=== PATIENT | male | born 1990 ===

== ENCOUNTER 2019-01-26 20:06 | Emergency (ER) | payer OTHER ==
[~2019-01-26] VITALS: Ht 170.2 cm; Wt 90.7 kg
[2019-01-26] MEDS ORDERED: ALBU90OI INH (21:19)
[2019-01-26] MEDS ORDERED: Celexa10 MG PO (21:23)
[2019-01-26] MEDS ORDERED: Xanax0.5 MG PO (21:23)
[2019-01-26] MEDS ORDERED: TRAZ50 PO (21:23)
[2019-01-29 13:07] LABS: CHLAMYDIA BY NAA Negative (Negative); GONOCOCCUS BY NAA Negative (Negative); TRICH VAG BY NAA Negative (Negative)
== END 2019-01-26 22:20 | disposition home or self-care (01) ==
LOC: ER 20:06
PROVIDERS: Physician Assistant
DX: F41.9 Anxiety disorder, unspecified (principal); F32.9 Major depressive disorder, single episode, unspecified; Z87.891 Personal history of nicotine dependence
CPT/HCPCS: 87491; 87591; 87661; 93005; 93010; 99283-25

== ENCOUNTER 2019-03-03 22:06 | Emergency (ER) | payer OTHER ==
[~2019-03-03] VITALS: Ht 170.2 cm; Wt 87.1 kg
[~2019-03-03 22:06] MED LIST: ALBU90OI INH; Celexa10 MG PO; TRAZ50 PO; Xanax0.5 MG PO
[2019-03-04] MEDS ORDERED: ACETAMINOPHEN500 MG PO (00:01)
[2019-03-04] MEDS ORDERED: KETO10 PO (00:01)
== END 2019-03-04 00:15 | disposition home or self-care (01) ==
LOC: ER 22:06
DX: S83.91XA Sprain of unspecified site of right knee, initial encounter (principal); S39.012A Strain of muscle, fascia and tendon of lower back, initial encounter; F41.9 Anxiety disorder, unspecified; F32.9 Major depressive disorder, single episode, unspecified; Z87.891 Personal history of nicotine dependence; Z79.899 Other long term (current) drug therapy; W18.39XA Other fall on same level, initial encounter; Y93.F2 Activity, caregiving, lifting
CPT/HCPCS: 73562-RT; 96372; 99283-25; J1885

== ENCOUNTER → 2019-03-04 | Outpatient (CLI) | payer OTHER ==
[~2019-03-04] MED LIST changes: +ACETAMINOPHEN500 MG PO; +KETO10 PO
[2019-03-04 17:50] LABS: U Amphetamine Screen Not Detected; U Barbituate Screen Not Detected; U Benzodiazapine Screen Not Detected; U Buprenorphine Screen Not Detected; U Cannabinoids Screen Not Detected; U Cocaine Screen Not Detected; U Methadone Screen Not Detected; U Methamphetamine Screen Not Detected; U Opiates Screen Not Detected; U Oxycodone Screen Not Detected; U Phencyclidine Screen Not Detected; U Propoxyphene Screen Not Detected
== END ==
LOC: LAB SHORT 15:22 → LAB 15:22
PROVIDERS: Registered Nurse Psychiatric/Mental Health
DX: Z51.81 Encounter for therapeutic drug level monitoring (principal); Z79.899 Other long term (current) drug therapy

== ENCOUNTER 2019-05-04 07:30 | Emergency (ER) | payer OTHER ==
[~2019-05-04] VITALS: Ht 170.2 cm; Wt 90.7 kg
[2019-05-04 08:01] LABS: BASOPHILS ABSOLUTE AUTO 0.05 K/mm3 (0.00-0.23); BASOPHILS PERCENT AUTO 1 % (0-2); EOSINOPHILS ABSOLUTE AUTO 0.17 K/mm3 (0.00-0.68); EOSINOPHILS PERCENT AUTO 2 % (0-6); Hematocrit 47.2 % (37.0-53.0); Hemoglobin 15.8 g/dL (13.5-17.5); IMMATURE GRAN ABSOLUTE AUTO 0.02 K/mm3 (0.00-0.10); IMMATURE GRAN PERCENT AUTO 0 % (0-1); LYMPHOCYTES ABSOLUTE AUTO 2.56 K/mm3 (0.84-5.20); LYMPHOCYTES PERCENT AUTO 28 % (21-46); MONOCYTES PERCENT AUTO 8 % (4-13); Mean Corpuscular HGB Conc 33.5 g/dL (31.5-36.5); Mean Corpuscular Volume 90 fL (80-100); Mean Platelet Volume 11.1 fL (9.1-12.4); NEUTROPHILS ABSOLUTE AUTO 5.57 K/mm3 (1.96-9.15); NEUTROPHILS PERCENT AUTO 61 % (41-73); Platelet Count 274 K/mm3 (150-400); RDW Coefficient Variation 12.2 % (11.7-14.2); RDW Standard Deviation 40.6 fL (35.1-46.3); Red Blood Cell Count 5.26 M/mm3 (4.30-5.90); White Blood Cell Count 9.07 K/mm3 (4.00-11.30)
[2019-05-04 08:17] LABS: Alanine Aminotransfer (ALT/SGP 34 U/L (12-78); Albumin, Blood 3.8 g/dL (3.4-5.0); Albumin/Globulin Ratio 1.1 (0.8-1.8); Alk Phos 73 U/L (50-136); Anion Gap 7 mmol/L (6-16); Aspartate Aminotrans (AST/SGOT 26 U/L (12-37); Bilirubin, Total 0.5 mg/dL (0.1-1.0); Blood Urea Nitrogen 9 mg/dL (8-24); CO2, Blood 23 mmol/L (21-32); Chloride, Blood 107 mmol/L (98-108); Creatinine, Blood 0.64 mg/dL (0.60-1.20); Globulin, Blood 3.5 g/dL (2.2-4.0); Glomerular Filtration Rate >60 (60-); Glucose, Blood 125 mg/dL (70-99); Potassium, Blood 3.8 mmol/L (3.5-5.5); Sodium, Blood 137 mmol/L (136-145); Total Protein, Blood 7.3 g/dL (6.4-8.2)
== END 2019-05-04 10:28 | disposition home or self-care (01) ==
LOC: ER 07:30
PROVIDERS: Emergency Medicine
DX: R55 Syncope and collapse (principal); R42 Dizziness and giddiness; F41.9 Anxiety disorder, unspecified; F32.9 Major depressive disorder, single episode, unspecified; G43.909 Migraine, unspecified, not intractable, without status migrainosus; Z87.891 Personal history of nicotine dependence
CPT/HCPCS: 36415; 80053; 85025; 93005; 93010; 96360; 99284-25; A9270; J7120

== ENCOUNTER 2019-08-03 16:50 | Observation (INO) | payer OTHER ==
[~2019-08-03] VITALS: Ht 170.2 cm; Wt 93.4 kg
[2019-08-03] MEDS ORDERED: IBUP800 PO (17:47)
[2019-08-03 18:09] LABS: BASOPHILS PERCENT AUTO 1 % (0-2); EOSINOPHILS ABSOLUTE AUTO 0.12 K/mm3 (0.00-0.68); EOSINOPHILS PERCENT AUTO 1 % (0-6); Hematocrit 47.7 % (37.0-53.0); IMMATURE GRAN ABSOLUTE AUTO 0.04 K/mm3 (0.00-0.10); IMMATURE GRAN PERCENT AUTO 0 % (0-1); LYMPHOCYTES ABSOLUTE AUTO 3.33 K/mm3 (0.84-5.20); LYMPHOCYTES PERCENT AUTO 28 % (21-46); MONOCYTES ABSOLUTE AUTO 1.11 K/mm3 (0.16-1.47); MONOCYTES PERCENT AUTO 10 % (4-13); Mean Corpuscular HGB 30.2 pg (26.0-34.0); Mean Corpuscular HGB Conc 33.5 g/dL (31.5-36.5); Mean Corpuscular Volume 90 fL (80-100); NEUTROPHILS ABSOLUTE AUTO 7.01 K/mm3 (1.96-9.15); NEUTROPHILS PERCENT AUTO 60 % (41-73); Platelet Count 270 K/mm3 (150-400); RDW Standard Deviation 39.8 fL (35.1-46.3); Red Blood Cell Count 5.29 M/mm3 (4.30-5.90); White Blood Cell Count 11.71 K/mm3 (4.00-11.30)
[2019-08-03] MEDS ORDERED: GABA300 PO (18:23)
[2019-08-03] MEDS ORDERED: BACL20 PO (18:23)
[2019-08-03] MEDS ORDERED: MINIPRESS2 M1 PO (18:25)
[2019-08-03] MEDS ORDERED: OMEP20ER PO (18:26)
[2019-08-03] MEDS ORDERED: LITH300C PO ×2 (18:26)
[2019-08-03] MEDS ORDERED: VENLAFAXINE HC225 MG PO (18:29)
[2019-08-03] MEDS ORDERED: TRAM50 PO (18:31)
[2019-08-03] MEDS ORDERED: MIRT15 PO (18:32)
[2019-08-03 18:33] LABS: Alanine Aminotransfer (ALT/SGP 37 U/L (12-78); Albumin, Blood 4.1 g/dL (3.4-5.0); Albumin/Globulin Ratio 1.1 (0.8-1.8); Alk Phos 98 U/L (50-136); Anion Gap 4 mmol/L (6-16); Aspartate Aminotrans (AST/SGOT 20 U/L (12-37); Bilirubin, Total 0.5 mg/dL (0.1-1.0); Blood Urea Nitrogen 14 mg/dL (8-24); Bun/Creatinine Ratio 22.3 (12.0-20.0); CO2, Blood 27 mmol/L (21-32); Calcium, Blood 8.9 mg/dL (8.5-10.1); Chloride, Blood 107 mmol/L (98-108); Creatinine, Blood 0.63 mg/dL (0.60-1.20); Globulin, Blood 3.6 g/dL (2.2-4.0); Glomerular Filtration Rate >60 (60-); Glucose, Blood 88 mg/dL (70-99); Potassium, Blood 3.5 mmol/L (3.5-5.5); Salicylate <1.7 mg/dL (2.8-20.0); Sodium, Blood 138 mmol/L (136-145); Total Protein, Blood 7.7 g/dL (6.4-8.2)
[2019-08-03] MEDS ORDERED: HYDHCL25 PO (18:34)
[2019-08-03 18:37] LABS: Acetaminophen, Random <2.0 ug/mL (10.0-30.0); Ethanol (Alcohol), Blood, Med <3 mg/dL
[2019-08-03 18:43] LABS: Source, Urine Clean Catch
[2019-08-03 18:52] LABS: Bilirubin, Urine Neg (Neg); Blood, Urine Neg (Neg); Glucose Qualitative, Urine Neg (Neg); Ketones, Urine Neg (Neg); Leukocyte Esterase, Urine Neg (Neg); Nitrite, Urine Neg (Neg); Protein, Urine Neg (Neg); Specific Gravity, Urine 1.015 (1.003-1.022); Urobilinogen, Urine NORM (Normal); pH, Urine 6.5 (5.0-8.0)
[2019-08-03 18:59] LABS: Appearance, Urine Clear (Clear); Color, Urine Yellow (P-Yellow)
[2019-08-03] MEDS ORDERED: ALBU90OI INH (19:11)
[2019-08-03 19:18] LABS: U Amphetamine Screen Not Detected; U Barbituate Screen Not Detected; U Benzodiazapine Screen Not Detected; U Buprenorphine Screen Not Detected; U Cannabinoids Screen Not Detected; U Cocaine Screen Not Detected; U Methadone Screen Not Detected; U Methamphetamine Screen Not Detected; U Opiates Screen Not Detected; U Oxycodone Screen Not Detected; U Phencyclidine Screen Not Detected; U Propoxyphene Screen Not Detected
== END 2019-08-04 15:44 | disposition home or self-care (01) ==
LOC: ER 16:50 → EOR 16:51
PROVIDERS: Physician Assistant; ADMIT Emergency Medicine
DX: F32.9 Major depressive disorder, single episode, unspecified (principal); F17.220 Nicotine dependence, chewing tobacco, uncomplicated; F41.9 Anxiety disorder, unspecified; Z88.8 Allergy status to other drugs, medicaments and biological substances; Z79.899 Other long term (current) drug therapy
CPT/HCPCS: 80053; 81003; 85025; 99285; G0378; G0480

== ENCOUNTER 2019-08-14 10:11 | Emergency (ER) | payer OTHER ==
[~2019-08-14] VITALS: Ht 170.2 cm; Wt 90.7 kg
[~2019-08-14 10:11] MED LIST changes: +BACL20 PO; +GABA300 PO; +HYDHCL25 PO; +IBUP800 PO; +LITH300C PO; +MINIPRESS2 M1 PO; +MIRT15 PO; +OMEP20ER PO; +TRAM50 PO; +VENLAFAXINE HC225 MG PO
[2019-08-14] MEDS ORDERED: OLAN5 PO (10:59)
[2019-08-14 12:33] LABS: Influenza A Negative (NEGATIVE); Influenza B Negative (NEGATIVE)
== END 2019-08-14 12:44 | disposition home or self-care (01) ==
LOC: ER 10:11
PROVIDERS: Emergency Medicine
DX: J98.9 Respiratory disorder, unspecified (principal); B97.89 Other viral agents as the cause of diseases classified elsewhere; J45.909 Unspecified asthma, uncomplicated; F41.9 Anxiety disorder, unspecified; F32.9 Major depressive disorder, single episode, unspecified; G43.909 Migraine, unspecified, not intractable, without status migrainosus; Z87.891 Personal history of nicotine dependence; Z79.899 Other long term (current) drug therapy; Z79.51 Long term (current) use of inhaled steroids
CPT/HCPCS: 87804; 99283

== ENCOUNTER 2020-02-07 10:57 | Day surgery (SDC) | payer OTHER ==
[~2020-02-07] VITALS: Ht 170.2 cm; Wt 97.9 kg
[~2020-02-07 10:57] MED LIST changes: +LITH300ER; +MIRT30 PO; +OLAN5 PO; +ONDA4ODT MM; +PRAZ5 PO
[2020-02-07] MEDS ORDERED: ALBU3IS (11:42)
== END 2020-02-07 12:49 | disposition home or self-care (01) ==
LOC: ORSCSDS 10:57
PROVIDERS: Student in an Organized Health Care Education/Training Program
PROC: 0DB58ZX Excision of Esophagus, Via Natural or Artificial Opening Endoscopic, Diagnostic (ICD-10-PCS; principal; 2020-02-07 12:45)
PROC: 0DB88ZX Excision of Small Intestine, Via Natural or Artificial Opening Endoscopic, Diagnostic (ICD-10-PCS; principal; 2020-02-07 12:45)
PROC: 0DB68ZX Excision of Stomach, Via Natural or Artificial Opening Endoscopic, Diagnostic (ICD-10-PCS; principal; 2020-02-07 12:45)
DX: R13.10 Dysphagia, unspecified (principal); R10.9 Unspecified abdominal pain; R11.2 Nausea with vomiting, unspecified; B96.81 Helicobacter pylori [H. pylori] as the cause of diseases classified elsewhere; K29.80 Duodenitis without bleeding; F31.9 Bipolar disorder, unspecified; Z79.899 Other long term (current) drug therapy
CPT/HCPCS: 88305; 88342; J2250; J2704; J7120

== ENCOUNTER 2021-05-14 09:29 | Day surgery (SDC) | payer OTHER ==
[~2021-05-14] VITALS: Ht 170.2 cm; Wt 106.9 kg
[~2021-05-14 09:29] MED LIST changes: +ALBU3IS
[2021-05-14] MEDS ORDERED: SILD25T (10:12)
--- NOTE | 2021-05-14 10:23 | NUR ---
05/14/21 1023 Karrie Reyes FIRST ATTEMPT MISSED BY ABRIL IN THE RIGHT FOREARM. SECOND ATTEMPT SUCCESFUL IN THE RIGHT HAND BY HALEY
== END 2021-05-14 13:11 | disposition home or self-care (01) ==
LOC: ORSCSDS 09:29
PROVIDERS: Student in an Organized Health Care Education/Training Program
PROC: 0DB48ZX Excision of Esophagogastric Junction, Via Natural or Artificial Opening Endoscopic, Diagnostic (ICD-10-PCS; principal; 2021-05-14 11:15)
PROC: 0DB68ZX Excision of Stomach, Via Natural or Artificial Opening Endoscopic, Diagnostic (ICD-10-PCS; principal; 2021-05-14 11:15)
DX: R11.2 Nausea with vomiting, unspecified (principal); F31.9 Bipolar disorder, unspecified; F17.210 Nicotine dependence, cigarettes, uncomplicated; Z79.899 Other long term (current) drug therapy
CPT/HCPCS: 88305; 88342; J2250; J2704; J7120

== ENCOUNTER 2021-10-18 07:28 | Emergency (ER) | payer OTHER ==
[~2021-10-18] VITALS: Ht 170.2 cm; Wt 108.9 kg
[~2021-10-18 07:28] MED LIST changes: +SILD25T
[2021-10-18 09:30] LABS: BASOPHILS ABSOLUTE AUTO 0.06 K/mm3 (0.00-0.23); BASOPHILS PERCENT AUTO 1 % (0-2); EOSINOPHILS ABSOLUTE AUTO 0.11 K/mm3 (0.00-0.68); EOSINOPHILS PERCENT AUTO 1 % (0-6); Hematocrit 48.3 % (37.0-53.0); Hemoglobin 16.1 g/dL (13.5-17.5); IMMATURE GRAN ABSOLUTE AUTO 0.02 K/mm3 (0.00-0.10); IMMATURE GRAN PERCENT AUTO 0 % (0-1); LYMPHOCYTES ABSOLUTE AUTO 2.01 K/mm3 (0.84-5.20); LYMPHOCYTES PERCENT AUTO 19 % (21-46); MONOCYTES ABSOLUTE AUTO 0.73 K/mm3 (0.16-1.47); MONOCYTES PERCENT AUTO 7 % (4-13); Mean Corpuscular HGB 28.9 pg (26.0-34.0); Mean Corpuscular HGB Conc 33.3 g/dL (31.5-36.5); Mean Corpuscular Volume 87 fL (80-100); Mean Platelet Volume 10.8 fL (9.1-12.4); NEUTROPHILS PERCENT AUTO 73 % (41-73); Platelet Count 323 K/mm3 (150-400); RDW Coefficient Variation 11.9 % (11.7-14.2); RDW Standard Deviation 37.9 fL (35.1-46.3); Red Blood Cell Count 5.57 M/mm3 (4.30-5.90); White Blood Cell Count 10.83 K/mm3 (4.00-11.30)
[2021-10-18] MEDS ORDERED: Clonazepam1 M1 PO (09:39)
[2021-10-18] MEDS ORDERED: SUBVENITE PO (09:39)
[2021-10-18] MEDS ORDERED: TOPI25 PO (09:40)
[2021-10-18 09:54] LABS: Albumin, Blood 4.3 g/dL (3.4-5.0); Albumin/Globulin Ratio 1.3 (0.8-1.8); Bilirubin, Total 0.6 mg/dL (0.1-1.0); Bun/Creatinine Ratio 15.4 (12.0-20.0); Calcium, Blood 9.5 mg/dL (8.5-10.1); Creatinine, Blood 0.72 mg/dL (0.60-1.20); Globulin, Blood 3.2 g/dL (2.2-4.0); Potassium, Blood 4.1 mmol/L (3.5-5.5); Total Protein, Blood 7.5 g/dL (6.4-8.2)
== END 2021-10-18 10:39 | disposition home or self-care (01) ==
LOC: ER 07:28
PROVIDERS: Emergency Medicine
DX: R07.89 Other chest pain (principal); F41.9 Anxiety disorder, unspecified; J45.909 Unspecified asthma, uncomplicated; F32.A Depression, unspecified; Z88.8 Allergy status to other drugs, medicaments and biological substances; Z79.899 Other long term (current) drug therapy
CPT/HCPCS: 36415; 71045; 80053; 84484; 85025; 93005; 93010

== ENCOUNTER → 2022-12-28 | Outpatient (CLI) | payer OTHER ==
[~2022-12-28] MED LIST changes: +Clonazepam1 M1 PO; +SUBVENITE PO; +TOPI25 PO
[2022-12-28 12:27] LABS: BASOPHILS ABSOLUTE AUTO 0.08 K/mm3 (0.00-0.23); BASOPHILS PERCENT AUTO 1 % (0-2); EOSINOPHILS ABSOLUTE AUTO 0.21 K/mm3 (0.00-0.68); EOSINOPHILS PERCENT AUTO 2 % (0-6); Hematocrit 48.9 % (37.0-53.0); Hemoglobin 16.3 g/dL (13.5-17.5); IMMATURE GRAN ABSOLUTE AUTO 0.03 K/mm3 (0.00-0.10); IMMATURE GRAN PERCENT AUTO 0 % (0-1); LYMPHOCYTES ABSOLUTE AUTO 2.43 K/mm3 (0.84-5.20); LYMPHOCYTES PERCENT AUTO 24 % (21-46); MONOCYTES ABSOLUTE AUTO 0.74 K/mm3 (0.16-1.47); MONOCYTES PERCENT AUTO 7 % (4-13); Mean Corpuscular HGB 29.4 pg (26.0-34.0); Mean Corpuscular HGB Conc 33.3 g/dL (31.5-36.5); Mean Corpuscular Volume 88 fL (80-100); Mean Platelet Volume 10.6 fL (9.1-12.4); NEUTROPHILS PERCENT AUTO 66 % (41-73); Platelet Count 321 K/mm3 (150-400); RDW Coefficient Variation 12.5 % (11.7-14.2); RDW Standard Deviation 40.5 fL (35.1-46.3); Red Blood Cell Count 5.54 M/mm3 (4.30-5.90); White Blood Cell Count 10.19 K/mm3 (4.00-11.30)
[2022-12-28 12:39] LABS: Albumin, Blood 4.2 g/dL (3.4-5.0); Albumin/Globulin Ratio 1.3 (0.8-1.8); Bilirubin, Total 0.5 mg/dL (0.1-1.0); Bun/Creatinine Ratio 7.5 (12.0-20.0); Calcium, Blood 9.5 mg/dL (8.5-10.1); Creatinine, Blood 0.93 mg/dL (0.60-1.20); Globulin, Blood 3.2 g/dL (2.2-4.0); Potassium, Blood 4.2 mmol/L (3.5-5.5); Total Protein, Blood 7.4 g/dL (6.4-8.2)
[2022-12-31 04:29] LABS: CHLAMYDIA TRACHOMATIS, NAA Negative (Negative)
== END | disposition home or self-care (01) ==
LOC: LAB 12:23 → LAB SHORT 12:23
PROVIDERS: Emergency Medicine
DX: N50.811 Right testicular pain (principal); Z72.51 High risk heterosexual behavior
CPT/HCPCS: 80053; 85025; 87491; 87591

== ENCOUNTER 2024-02-25 16:17 | Emergency (ER) | payer OTHER ==
[~2024-02-25] VITALS: Ht 167.6 cm; Wt 77.1 kg
[2024-02-25 17:07] LABS: BASOPHILS ABSOLUTE AUTO 0.04 K/mm3 (0.00-0.23); BASOPHILS PERCENT AUTO 0 % (0-2); EOSINOPHILS ABSOLUTE AUTO 0.13 K/mm3 (0.00-0.68); EOSINOPHILS PERCENT AUTO 1 % (0-6); Hemoglobin 16.1 g/dL (13.5-17.5); IMMATURE GRAN ABSOLUTE AUTO 0.04 K/mm3 (0.00-0.10); IMMATURE GRAN PERCENT AUTO 0 % (0-1); LYMPHOCYTES ABSOLUTE AUTO 2.23 K/mm3 (0.84-5.20); LYMPHOCYTES PERCENT AUTO 21 % (21-46); MONOCYTES ABSOLUTE AUTO 0.75 K/mm3 (0.16-1.47); MONOCYTES PERCENT AUTO 7 % (4-13); Mean Corpuscular HGB 31.3 pg (26.0-34.0); Mean Corpuscular HGB Conc 34.3 g/dL (31.5-36.5); Mean Corpuscular Volume 91 fL (80-100); Mean Platelet Volume 10.7 fL (9.1-12.4); NEUTROPHILS ABSOLUTE AUTO 7.61 K/mm3 (1.96-9.15); NEUTROPHILS PERCENT AUTO 71 % (41-73); Platelet Count 334 K/mm3 (150-400); RDW Coefficient Variation 12.1 % (11.7-14.2); RDW Standard Deviation 40.3 fL (35.1-46.3); Red Blood Cell Count 5.14 M/mm3 (4.30-5.90)
[2024-02-25 17:25] LABS: Albumin, Blood 4.2 g/dL (3.4-5.0); Albumin/Globulin Ratio 1.2 (0.8-1.8); Bilirubin, Total 0.7 mg/dL (0.1-1.0); Bun/Creatinine Ratio 7.9 (12.0-20.0); Calcium, Blood 9.5 mg/dL (8.5-10.1); Creatinine, Blood 1.01 mg/dL (0.60-1.20); Globulin, Blood 3.5 g/dL (2.2-4.0); Magnesium, Blood 2.3 mg/dL (1.6-2.4); Potassium, Blood 4.1 mmol/L (3.5-5.5); Total Protein, Blood 7.7 g/dL (6.4-8.2)
[2024-02-25] MEDS ORDERED: EMTRICITABINE-1 EAC5 PO (19:25)
[2024-02-25] MEDS ORDERED: Budeprion Xl300 MG PO (19:25)
[2024-02-25 20:17] LABS: Lithium 0.96 mmol/L (0.60-1.20)
[2024-02-25 20:45] VITALS: BP 107/58
== END 2024-02-25 21:17 | disposition home or self-care (01) ==
LOC: ER 16:17
PROVIDERS: Physician Assistant
DX: T50.911A Poisoning by multiple unspecified drugs, medicaments and biological substances, accidental (unintentional), initial encounter (principal); G43.909 Migraine, unspecified, not intractable, without status migrainosus; J45.909 Unspecified asthma, uncomplicated; F17.200 Nicotine dependence, unspecified, uncomplicated; Z79.899 Other long term (current) drug therapy; Z88.8 Allergy status to other drugs, medicaments and biological substances
CPT/HCPCS: 80053; 80178; 83735; 85025; 93005; 93010; 99284-25

== ENCOUNTER 2024-03-11 18:42 | Observation (INO) | payer OTHER ==
[~2024-03-11] VITALS: Ht 170.2 cm; Wt 87.5 kg
[~2024-03-11 18:42] MED LIST changes: +Budeprion Xl300 MG PO; +EMTRICITABINE-1 EAC5 PO
[2024-03-11 19:41] LABS: BASOPHILS ABSOLUTE AUTO 0.03 K/mm3 (0.00-0.23); BASOPHILS PERCENT AUTO 0 % (0-2); EOSINOPHILS ABSOLUTE AUTO 0.07 K/mm3 (0.00-0.68); EOSINOPHILS PERCENT AUTO 1 % (0-6); Hematocrit 45.4 % (37.0-53.0); Hemoglobin 15.4 g/dL (13.5-17.5); IMMATURE GRAN ABSOLUTE AUTO 0.04 K/mm3 (0.00-0.10); IMMATURE GRAN PERCENT AUTO 0 % (0-1); LYMPHOCYTES PERCENT AUTO 12 % (21-46); MONOCYTES ABSOLUTE AUTO 0.57 K/mm3 (0.16-1.47); MONOCYTES PERCENT AUTO 5 % (4-13); Mean Corpuscular HGB Conc 33.9 g/dL (31.5-36.5); Mean Corpuscular Volume 91 fL (80-100); Mean Platelet Volume 10.6 fL (9.1-12.4); NEUTROPHILS ABSOLUTE AUTO 9.23 K/mm3 (1.96-9.15); NEUTROPHILS PERCENT AUTO 81 % (41-73); Platelet Count 345 K/mm3 (150-400); RDW Coefficient Variation 12.1 % (11.7-14.2); RDW Standard Deviation 40.3 fL (35.1-46.3); Red Blood Cell Count 4.97 M/mm3 (4.30-5.90); White Blood Cell Count 11.34 K/mm3 (4.00-11.30)
[2024-03-11 19:50] LABS: Source, Urine Clean Catch
[2024-03-11 19:57] LABS: Appearance, Urine Clear (Clear); Bilirubin, Urine Neg (Neg); Blood, Urine Neg (Neg); Color, Urine Yellow (P-Yellow); Glucose Qualitative, Urine Neg (Neg); Ketones, Urine 3+ (Neg); Leukocyte Esterase, Urine Neg (Neg); Nitrite, Urine Neg (Neg); Protein, Urine Neg (Neg); Urobilinogen, Urine NORM (Normal)
[2024-03-11 20:12] LABS: Lithium 0.52 mmol/L (0.60-1.20)
[2024-03-11 20:13] LABS: Ethanol (Alcohol), Blood, Med <3 mg/dL; Salicylate <1.7 mg/dL (2.8-20.0)
[2024-03-11 20:13] LABS: U Amphetamine Screen Not Detected; U Barbituate Screen Not Detected; U Benzodiazapine Screen Not Detected; U Buprenorphine Screen Not Detected; U Cannabinoids Screen Not Detected; U Cocaine Screen Not Detected; U Methadone Screen Not Detected; U Methamphetamine Screen Not Detected; U Opiates Screen Not Detected; U Oxycodone Screen Not Detected; U Phencyclidine Screen Not Detected
[2024-03-11 20:18] LABS: Acetaminophen, Random <2.0 ug/mL (10.0-30.0); Alanine Aminotransfer (ALT/SGP 34 U/L (12-78); Albumin, Blood 4.4 g/dL (3.4-5.0); Albumin/Globulin Ratio 1.4 (0.8-1.8); Alk Phos 92 U/L (50-136); Anion Gap 9 mmol/L (3-11); Aspartate Aminotrans (AST/SGOT 17 U/L (12-37); Bilirubin, Total 0.8 mg/dL (0.1-1.0); Blood Urea Nitrogen 9 mg/dL (8-24); Bun/Creatinine Ratio 9.5 (12.0-20.0); CO2, Blood 26 mmol/L (21-32); Calcium, Blood 9.7 mg/dL (8.5-10.1); Chloride, Blood 110 mmol/L (98-108); Creatinine, Blood 0.95 mg/dL (0.60-1.20); Globulin, Blood 3.1 g/dL (2.2-4.0); Glomerular Filtration Rate 109 (60-); Glucose, Blood 101 mg/dL (70-99); Potassium, Blood 3.7 mmol/L (3.5-5.5); Sodium, Blood 141 mmol/L (136-145); Total Protein, Blood 7.5 g/dL (6.4-8.2)
[2024-03-12] MEDS ORDERED: ESZOPICLONE3 MG PO (10:06)
[2024-03-12 19:30] VITALS: BP 120/75
[2024-03-16] MEDS ORDERED: BUPROPION HCL200 M2 PO (12:07)
[2024-03-16] MEDS ORDERED: CLON1 PO (12:08)
== END 2024-03-12 21:20 | disposition other institution (70) ==
LOC: ER 18:42 → EOR 18:43
PROVIDERS: Student in an Organized Health Care Education/Training Program; ADMIT Emergency Medicine
DX: F32.9 Major depressive disorder, single episode, unspecified (principal); R45.851 Suicidal ideations; F43.10 Post-traumatic stress disorder, unspecified; G43.909 Migraine, unspecified, not intractable, without status migrainosus; F60.3 Borderline personality disorder; Z79.899 Other long term (current) drug therapy
CPT/HCPCS: 36415; 80053; 80178; 80320; 81003; 85025; 93005; 93010; 99285-25; G0378; G0480

== ENCOUNTER 2024-03-12 14:10 | Inpatient (IN) | payer OTHER ==
[~2024-03-12] VITALS: Ht 170.2 cm; Wt 87.5 kg
[~2024-03-12 14:10] MED LIST changes: +ESZOPICLONE3 MG PO
[2024-03-12] MEDS ORDERED: FLU VACC TS2024-25(6MOS UP)/PF 45 MCG/0.5 ML SYRINGE IM SCH (15:55)
[2024-03-12] MEDS ORDERED: FLU VACC TS2024-25(6MOS UP)/PF 45 MCG/0.5 ML SYRINGE IM ONE (15:55)
[2024-03-12] MEDS ORDERED: Aluminum Hydroxide 320MG/5ML 473 ML PO PRN ×2 (15:55→16:10)
[2024-03-12] MEDS ORDERED: Ibuprofen 600 MG Tab PO PRN ×2 (15:55→16:10)
[2024-03-12] MEDS ORDERED: Acetaminophen 325 MG TABLET PO PRN ×2 (15:55→16:10)
[2024-03-12] MEDS ORDERED: LamoTRIgine 100 MG Tab PO SCH ×2 (16:00→16:10)
[2024-03-12] MEDS ORDERED: BuPROPion HCl SR 100 MG TabCR PO SCH ×2 (18:00)
[2024-03-12] MEDS ORDERED: Lithium Carbonate 450 MG TabCR PO SCH ×2 (21:00)
[2024-03-12] MEDS ORDERED: ClonazePAM 1 MG Tab PO SCH ×2 (21:00)
[2024-03-12 22:02] VITALS: BP 116/75
[2024-03-13 00:04] VITALS: BP 116/75
--- NOTE | 2024-03-13 06:08 | NUR ---
Patient arrived to the unit at 2123. A&Ox4 They were cooperative with the admission process. They took their medication without issue. They denied symptoms at this time. They denied any concerns at this time. They are able to make their needs known. Plan of care ongoing. They appeared to be sleeping quietly for 3 hours.
[2024-03-13] MEDS ORDERED: Nicotine Polacrilex 2 MG Gum PO PRN (07:10)
[2024-03-13] MEDS ORDERED: Folic Acid 1 MG TAB PO SCH ×2 (09:00)
[2024-03-13] MEDS ORDERED: Thiamine HCl 100 MG Tab PO SCH ×2 (09:00)
[2024-03-13] MEDS ORDERED: BuPROPion HCl SR 100 MG TabCR PO SCH ×2 (09:00)
[2024-03-13] MEDS ORDERED: Multivitamins 1 Tab PO SCH ×2 (09:00)
[2024-03-13] MEDS ORDERED: Nicotine 21 MG PATCH TOP SCH (09:00)
--- NOTE | 2024-03-13 17:43 | NUR ---
SHIFT SUMMARY Pt A&O, calm, cooperative, eye contact is good. Pt describes his mood as "really good," affect is euthymic and full-range. Pt denies SI, HI, and hallucinations. Pt denied depression but endorsed "a little" anxiety RT being on the BHU. 1:1 was d/c'd this morning and pt is now on q15m safety checks. Pt had PRN nicotine gum once. Staff continues to monitor for safety and wellness.
[2024-03-13 21:20] VITALS: BP 133/74
--- NOTE | 2024-03-14 05:59 | NUR ---
Patient spent most of the evening watching TV with peers. They were cooperative with assessment. They took their medication without issue. They denied symptoms at this time. They denied new concerns at this time. They are able to make their needs known. Plan of care ongoing. They appeared to be sleeping for 6 hours.
[2024-03-14 08:23] VITALS: BP 119/77
[2024-03-14] MEDS ORDERED: Peg 400/Hypromellose/Glycerin 15 DROP/ML BTL BOTHEYES SCH (16:00)
--- NOTE | 2024-03-14 18:25 | NUR ---
PT DENIED SI, HI, AVH, INTUSIVE THOUGHTS AND PAIN. HE ENDORSED ANXIETY 1-2/10w. HE PARTICIPATED IN GROUPS AND IN THE [facility] TODAY. HE HAS APPEARED TO BE IN GOOD HUMOR. HE ASKED FOR NICORETTE GUM TWICE AND ALSO FOR ARIFICIAL TEARS.
[2024-03-14 20:34] VITALS: BP 131/81
--- NOTE | 2024-03-15 05:54 | NUR ---
Patient spent most of the evening watching TV and socializing with peers and staff. They were cooperative with assessment. They took their medication without issue. They denied new concerns at this time. They denied symptoms at this time. They are able to make their needs known. Plan of care ongoing. They requested a return to work from the provider. They have a nasal septum piercing that is crimped in place and is unable to be removed without tools. They appeared to be sleeping for 7 hours.
[2024-03-15 08:16] VITALS: BP 135/75
--- NOTE | 2024-03-15 08:27 | NUR ---
AM ASSESSMENT PT PLEASANT AND COOPERATIVE W/ CARE. PT SPEAKING HIGHLY OF [facility] STAFF R/T MAKING HIM FEEL COMFORTABLE AND NONJUDGEMENTAL. PT DENIES ANY CURRENT SI AND REGRETFUL FOR RECENT THOUGHTS OF SI W/ RESPONSIBILITY TO HIS 2 DAUGHTERS. PT REPORTS FAMILY HX OF SCHIZOPHRENIA W/ 2 UNCLES AND POSSIBLE BIPOLAR W/ MOM. PT REPORTS HX OF SUBSTANCE USE AND 4 YEARS OF SOBRIETY FROM COCAINE. PT CONTINUES TO DISCUSS MENTAL HEALTH INTEREST AND REPORTS SELF EDUCATING OF MH DISORDERS. I HAVE ENCOURAGED PT TO CONTINUE HIS EDUCATION AND DESIRES TO HELP OTHERS WITH MH DX. WILL CONTINUE TO MONITOR AND PROVIDE SUPPORTIVE COMMUNICATION.
--- NOTE | 2024-03-15 08:53 | NUR ---
SEPTUM PIERCING IN PLACE, PT REPORTS UNABLE TO REMOVE
--- NOTE | 2024-03-15 18:04 | NUR ---
SHIFT SUMMARY PT DENIES ANY CURRENT SI AT THIS TIME. REPORTS FEELING GOOD ABOUT FUTURE. PT VERY PLEASANT, THANKFUL, AND COOPERATIVE WITH CARE. PT CONTINUES TO PARTICIPATE WITH STAFF AND [facility] W/ GROUPS AND ACTIVITIES. PROVIDER HAS SIGNED WORK RELEASE FOR FOR PT FROM 03/12/24 THROUGH 03/20/24 PER PT REQUEST. PT RECEIVED INFORMATION FOR F/U COUNCELING/ COACHING UNTIL THERAPIST IS OBTAINED. PT ALSO ENCOURAGED TO APPLY FOR [facility] TO ASSIST W/ SERVICES. PT ALSO ENCOURAGED TO F/U W/ [facility] CRISIS TEAM FOR THERAPY ASSISTANCE. STAFF VERIFIED F/U APPT AT [facility] W/ DR WILLIAMSON 03/17 @10AM. WILL CONTINUE TO MONITOR AND PROVIDE SUPPORT.
[2024-03-15] MEDS ORDERED: Peg 400/Hypromellose/Glycerin 15 DROP/ML BTL BOTHEYES PRN (20:15)
[2024-03-15 20:32] VITALS: BP 129/81
--- NOTE | 2024-03-16 06:05 | NUR ---
Patient spent most of the evening watching TV and socializing with peers. They were cooperative with assessment. They took their scheduled medication and PRN eye drops without issue. Thye denied new concerns at this time. They denied any symptoms at this time. They are able to make their needs known. Plan of care ongoing. They were very [id number] to all of the staff for all of the assistance and recommendations. They appeared to be sleeping for 6 hours.
[2024-03-16 08:01] VITALS: BP 123/82
[2024-03-16 08:19] VITALS: BP 123/82
--- NOTE | 2024-03-16 08:45 | NUR ---
AM ASSESSMENT PT UP EARLY AND REPORTING SOME ANXIETY R/T DISCHARGE TODAY. PT REPORTS EXCITED TO GO HOME TO CHILDREN AND HAS SUPPORT TO HELP WITH THEM WHILE MAKING ADJUSTMENTS TO HOME SCHEDULES. PT CONTINUES TO DISCUSS F/U PLANS W/ COUNCELORS, THERAPISTS, AND SUPPORT SYSTEMS W/ [facility] CRISIS TEAM. PT DENIES ANY SI AT THIS TIME. WILL CONTINUE TO MONITOR AND PROVIDE SUPPORT NEEDED TO DISCHARGE.
[2024-03-16] MEDS ORDERED: BUPROPION HCL200 M2 PO ×2 (12:07→12:15)
[2024-03-16] MEDS ORDERED: CLON1 PO ×2 (12:08→12:15)
[2024-03-16] MEDS ORDERED: EMTRICITABINE-1 EAC5 PO (12:14)
--- NOTE | 2024-03-16 13:07 | NUR ---
DISCHARGE PT PROVIDED W/ DISCHARGE PAPERS W/ VERBAL UNDERSTANDING. VERY APPRECIATIVE. PERSONAL BELONGINGS RETURNED, AND ESCORTED TO DOOR. PT REPORTS PERSONAL VEHICLE IS IN ER PARKING. F/U APPT REMINDER PROVIDED AND MEDICATIONS CALLED TO [facility], SPOKE W/ PHARMACIST.
== END 2024-03-16 13:05 | disposition home or self-care (01) | DRG 885 ==
LOC: BHU 14:10
PROVIDERS: ADMIT Student in an Organized Health Care Education/Training Program
DX: F31.4 Bipolar disorder, current episode depressed, severe, without psychotic features (principal); R45.851 Suicidal ideations; F60.3 Borderline personality disorder; Z88.8 Allergy status to other drugs, medicaments and biological substances; Z79.899 Other long term (current) drug therapy
CPT/HCPCS: A9270

== ENCOUNTER → 2024-09-01 | Outpatient (CLI) | payer OTHER ==
[~2024-09-01] MED LIST changes: +BUPROPION HCL200 M2 PO; +CLON1 PO
== END ==
LOC: LAB SHORT 11:14 → LAB 11:14
DX: N50.82 Scrotal pain (principal)
CPT/HCPCS: 87086